=== PATIENT | female | born 1980 | race Caucasian/White ===

== ENCOUNTER 2022-05-02 11:32 | Emergency (ER) | payer OTHER ==
[~2022-05-02] VITALS: Ht 160 cm; Wt 111.4 kg
[2022-05-02 13:46] VITALS: BP 149/98
== END 2022-05-02 13:50 | disposition home or self-care (01) ==
LOC: ER 11:33
DX: I80.11 Phlebitis and thrombophlebitis of right femoral vein (principal); I80.12 Phlebitis and thrombophlebitis of left femoral vein; Z88.0 Allergy status to penicillin
CPT/HCPCS: 93971; 99284